=== PATIENT | female | born 1950 | race Caucasian/White ===

== ENCOUNTER 2018-08-11 05:58 | Day surgery (SDC) | payer MEDICARE ==
[~2018-08-11] VITALS: Ht 172.7 cm; Wt 70.3 kg
[2018-08-11] MEDS ORDERED: IRR STERIL WATER FOR IRR 1000 ML BOTTLE IR ONE (05:59)
[2018-08-11] MEDS ORDERED: ONDANSETRON 4 MG/2 ML VIAL IV ONE (05:59)
[2018-08-11] MEDS ORDERED: IV NORMAL SALINE 1000 ML BAG IV ONE (05:59)
[2018-08-11] MEDS ORDERED: KETOROLAC 0.5% OPHT DROP 3 ML BOTTLE ONE (06:25)
[2018-08-11] MEDS ORDERED: CYCLOPENTOLATE 1% OPHT DROP 2 ML BOTTLE ONE (06:25)
[2018-08-11] MEDS ORDERED: CIPROFLOXACIN 0.3% OPHT DROP 2.5 ML BOTTLE ONE (06:25)
[2018-08-11] MEDS ORDERED: TROPICAMIDE 1% OPHT DROP 3 ML BOTTLE ONE (06:26)
[2018-08-11] MEDS ORDERED: PHENYLEPHRINE 2.5% OPHT DROP 2 ML BOTTLE ONE (06:26)
[2018-08-11] MEDS ORDERED: BALANCED SALT IRRIG SOLN COMB1 500 ML, EPINEPHRINE-PF 1:1000 0.5 MG IO ONE ×2 (07:00)
[2018-08-11] MEDS ORDERED: TIMOLOL MALEATE 0.5% OPHT DROP 5 ML BOTTLE ONE (07:36)
[2018-08-11] MEDS ORDERED: NEO/POLYMYX B/DEXAME OPHT OINT 3.5 GM TUBE ONE (07:36)
[2018-08-11] MEDS ORDERED: LIDOCAINE-MPF 2% 5 ML VIAL ONE (07:36)
[2018-08-11] MEDS ORDERED: MOXIFLOXACIN HCL 3 ML OPHT DROPS ONE (07:36)
[2018-08-11] MEDS ORDERED: BALANCED SALT IRRIG SOLN COMB2 15 ML IRRIG.SOLN ONE (07:36)
[2018-08-11] MEDS ORDERED: TETRACAINE HCL 0.5% OPHT DROP 2 ML BOTTLE ONE (07:36)
[2018-08-11] MEDS ORDERED: HYALURONIDASE,OVINE 200 UNITS/ML VIAL ONE (07:37)
[2018-08-11] MEDS ORDERED: BUPIVACAINE PF 0.5% 30 ML VIAL ONE (07:37)
[2018-08-11] MEDS ORDERED: CARBACHOL OPHT 1.5 ML VIAL IO ONE (07:37)
[2018-08-11] MEDS ORDERED: HYALURONATE SODIUM 12.8 MG/0.8 ML DISP.SYRIN ONE (07:37)
[2018-08-11] MEDS ORDERED: TRYPAN BLUE 0.5 ML DISP.SYRIN ONE (07:54)
[2018-08-11] MEDS ORDERED: FENTANYL CITRATE 100 MCG/2 ML AMPUL ONE (08:00)
== END 2018-08-11 10:30 ==
LOC: DS 05:58
PROVIDERS: ATTEND Ophthalmology
DX: E11.36 Type 2 diabetes mellitus with diabetic cataract (principal); E66.9 Obesity, unspecified; G40.909 Epilepsy, unspecified, not intractable, without status epilepticus; Z88.8 Allergy status to other drugs, medicaments and biological substances; Z79.899 Other long term (current) drug therapy; Z98.890 Other specified postprocedural states; Z86.73 Personal history of transient ischemic attack (TIA), and cerebral infarction without residual deficits; J44.9 Chronic obstructive pulmonary disease, unspecified; F32.9 Major depressive disorder, single episode, unspecified
CPT/HCPCS: 71045; A4217; A4663; J0171; J2405; J3010; J3471; J3490; J7030; J7321; Q9968; V2632

== ENCOUNTER 2018-09-22 05:56 | Day surgery (SDC) | payer MEDICARE, MEDICAID ==
[2018-09-22] MEDS ORDERED: IRR STERIL WATER FOR IRR 1000 ML BOTTLE IR ONE (05:57)
[2018-09-22] MEDS ORDERED: GLYCOPYRROLATE 0.2 MG/ML VIAL MC ONE (05:57)
[2018-09-22] MEDS ORDERED: EPHEDRINE SULFATE 50 MG/ML AMPUL MC ONE (05:57)
[2018-09-22] MEDS ORDERED: LIDOCAINE-MPF 2% 5 ML VIAL MC ONE (05:57)
[2018-09-22] MEDS ORDERED: PROPOFOL 200 MG/20 ML BOTTLE IV ONE (05:57)
[2018-09-22] MEDS ORDERED: KETOROLAC 0.5% OPHT DROP 3 ML BOTTLE ONE (06:24)
[2018-09-22] MEDS ORDERED: CIPROFLOXACIN 0.3% OPHT DROP 2.5 ML BOTTLE ONE (06:24)
[2018-09-22] MEDS ORDERED: TROPICAMIDE 1% OPHT DROP 3 ML BOTTLE ONE (06:25)
[2018-09-22] MEDS ORDERED: CYCLOPENTOLATE 1% OPHT DROP 2 ML BOTTLE ONE (06:25)
[2018-09-22] MEDS ORDERED: PHENYLEPHRINE 2.5% OPHT DROP 2 ML BOTTLE ONE (06:25)
[2018-09-22] MEDS ORDERED: BALANCED SALT IRRIG SOLN COMB1 500 ML, EPINEPHRINE-PF 1:1000 0.5 MG IO ONE ×2 (07:00)
[2018-09-22] MEDS ORDERED: MOXIFLOXACIN HCL 3 ML OPHT DROPS ONE (07:38)
[2018-09-22] MEDS ORDERED: TETRACAINE HCL 0.5% OPHT DROP 2 ML BOTTLE ONE (07:38)
[2018-09-22] MEDS ORDERED: TIMOLOL MALEATE 0.5% OPHT DROP 5 ML BOTTLE ONE (07:38)
[2018-09-22] MEDS ORDERED: LIDOCAINE-MPF 2% 5 ML VIAL ONE (07:38)
[2018-09-22] MEDS ORDERED: NEO/POLYMYX B/DEXAME OPHT OINT 3.5 GM TUBE ONE (07:38)
[2018-09-22] MEDS ORDERED: BALANCED SALT IRRIG SOLN COMB2 15 ML IRRIG.SOLN ONE (07:39)
[2018-09-22] MEDS ORDERED: ACETYLCHOLINE CHLORIDE 1% OPHT 1 EA KIT ONE (07:39)
[2018-09-22] MEDS ORDERED: BUPIVACAINE PF 0.5% 30 ML VIAL ONE (07:39)
[2018-09-22] MEDS ORDERED: HYALURONIDASE,OVINE 200 UNITS/ML VIAL ONE (07:39)
[2018-09-22] MEDS ORDERED: HYALURONATE SODIUM 12.8 MG/0.8 ML DISP.SYRIN ONE (07:39)
[2018-09-22] MEDS ORDERED: MIDAZOLAM HCL 2 MG/2 ML VIAL ONE (07:44)
[2018-09-22] MEDS ORDERED: FENTANYL CITRATE 100 MCG/2 ML AMPUL ONE (07:45)
[2018-09-22] MEDS ORDERED: TRYPAN BLUE 0.5 ML DISP.SYRIN ONE (08:02)
[2018-09-22] MEDS ORDERED: BALANCED SALT IRRIG SOLN COMB1 0 ML ONE (08:04)
== END 2018-09-22 10:30 ==
LOC: DS 05:56
PROVIDERS: ATTEND Ophthalmology
DX: E11.36 Type 2 diabetes mellitus with diabetic cataract (principal); H25.012 Cortical age-related cataract, left eye; M19.90 Unspecified osteoarthritis, unspecified site; F31.89 Other bipolar disorder; J44.9 Chronic obstructive pulmonary disease, unspecified; E66.9 Obesity, unspecified; Z79.899 Other long term (current) drug therapy; Z98.890 Other specified postprocedural states; Z88.0 Allergy status to penicillin; Z88.8 Allergy status to other drugs, medicaments and biological substances; Z88.1 Allergy status to other antibiotic agents; Z86.73 Personal history of transient ischemic attack (TIA), and cerebral infarction without residual deficits
CPT/HCPCS: 66982; 82962; J0171; J2250; J3010; J3471; J3490 ×5; J7120; J7321; Q9968; V2632; A4217; A4663